=== PATIENT | female | born 1965 | race Caucasian/White ===

== ENCOUNTER 2022-09-05 17:42 | Inpatient (IN) | payer OTHER ==
[~2022-09-05] VITALS: Ht 157.5 cm; Wt 88.6 kg
[2022-09-05] MEDS ORDERED: LORazepam 2 MG/ML 1ML VIAL IV STA ×2 (17:58→22:28)
[2022-09-05 18:24] LABS: BASO % 0.4 % (0.0-1.0); EOS % 0.3 % (0.0-3.0); HEMATOCRIT 49.9 % (36.0-47.0); HEMOGLOBIN 17.1 g/dl (12.0-15.5); LYMPH # 1.7 10^3/uL (1.5-5.0); LYMPH % 18.4 % (24.0-44.0); MEAN CORPUSCULAR HEMOGLOBIN 30.6 pg (27.0-33.0); MEAN CORPUSCULAR HGB CONC 34.3 g/dl (32.0-36.5); MEAN CORPUSCULAR VOLUME 89.3 fl (80.0-96.0); MONO # 0.5 10^3/uL (0.0-0.8); NEUTROPHILS # 7.1 10^3/uL (1.5-8.5); NEUTROPHILS % 75.5 % (36.0-66.0); PLATELET COUNT, AUTOMATED 246 10^3/uL (150-450); RED BLOOD COUNT 5.59 10^6/uL (4.00-5.40); WHITE BLOOD COUNT 9.4 10^3/uL (4.0-10.0)
[2022-09-05] MEDS ORDERED: LABETALOL 100MG/20ML VIAL IV STA ×3 (18:26→21:42)
[2022-09-05 18:34] LABS: INR 0.92; PROTHROMBIN TIME 12.6 SECONDS (12.5-14.5)
[2022-09-05 18:35] LABS: PARTIAL THROMBOPLASTIN TIME 27.4 SECONDS (24.8-34.2)
[2022-09-05] MEDS ORDERED: HOME MED LIST COMPLETE! XX SCH (18:45)
[2022-09-05 18:54] LABS: BLOOD UREA NITROGEN 16 MG/DL (9-23); CALCIUM LEVEL 10.4 MG/DL (8.5-10.1); CARBON DIOXIDE LEVEL 24 MMOL/L (20-31); CHLORIDE LEVEL 102 MMOL/L (98-107); CREATININE FOR GFR 0.82 MG/DL (0.55-1.30); GLOMERULAR FILTRATION RATE > 60.0 (>51); GLUCOSE, FASTING 122 MG/DL (60-100); POTASSIUM SERUM 3.8 MMOL/L (3.5-5.1); SODIUM LEVEL 140 MMOL/L (136-145)
[2022-09-05 19:00] LABS: RSV AMPLIFICATION NEGATIVE (NEGATIVE)
[2022-09-05 20:24] LABS: HEMOGLOBIN A1c 5.4 % (4.0-6.0)
[2022-09-05 20:27] LABS: THYROID STIMULATING HORMONE 2.239 uIU/ML (0.55-4.78)
[2022-09-05 20:32] VITALS: BP 260/120
[2022-09-05] MEDS ORDERED: THIAMINE 100 MG TAB PO SCH (21:00)
[2022-09-05] MEDS ORDERED: ATORVASTATIN 20 MG TAB PO SCH (21:00)
[2022-09-05 21:15] LABS: ALBUMIN 4.1 G/DL (3.2-5.2)
[2022-09-05] MEDS ORDERED: ACETAMINOPHEN TAB 650MG DOSE (2X325MG) PO PRN (21:20)
[2022-09-05] MEDS ORDERED: LORazepam 2 MG TAB PO PRN (21:20)
[2022-09-05 21:56] LABS: CK-MB VALUE MASS < 1.0 NG/ML (<3.6)
[2022-09-05 21:58] LABS: CPK CREATINE PHOSPHOKINASE 59 U/L (34-145); MB/CK RELATIVE INDEX 1.69 (< OR =4)
[2022-09-05 21:59] LABS: PTH INTACT 172.5 PG/ML (18.5-88.0)
[2022-09-05] MEDS ORDERED: niCARdipine IV 40 MG in IV 1 EA IV SCH (22:15)
[2022-09-05] MEDS ORDERED: NS 1,000 ML IV ONE ×2 (23:55)
[2022-09-06] MEDS ORDERED: LORazepam 2 MG/ML 1ML VIAL IV STA (01:19)
[2022-09-06 01:26] VITALS: BP 205/98
[2022-09-06 01:45] VITALS: BP 196/9
[2022-09-06] MEDS ORDERED: FOLIC ACID 1MG TAB PO SCH (09:00)
[2022-09-06] MEDS ORDERED: ASPIRIN 81MG CHEW TABLET PO SCH (09:00)
[2022-09-06] MEDS ORDERED: MULTIVITAMINS/MINERALS THERAP 1 TAB PO SCH (09:00)
[2022-09-06] MEDS ORDERED: ENOXAPARIN 40MG/0.4ML SYRINGE (J1650 PER 10MG) SC SCH (09:00)
== END 2022-09-06 01:31 | disposition short-term general hospital (02) | DRG 45 ==
LOC: M ED 17:42 → EDBD 17:42 → M ED INP 21:19
PROVIDERS: ADMIT Internal Medicine; ATTEND Internal Medicine
DX: I63.511 Cerebral infarction due to unspecified occlusion or stenosis of right middle cerebral artery (principal); E83.52 Hypercalcemia; I10 Essential (primary) hypertension; F40.00 Agoraphobia, unspecified; R29.810 Facial weakness; R47.81 Slurred speech; R47.1 Dysarthria and anarthria; I16.0 Hypertensive urgency; F10.10 Alcohol abuse, uncomplicated; F41.9 Anxiety disorder, unspecified; Z87.891 Personal history of nicotine dependence

== ENCOUNTER → 2022-10-22 | Outpatient (REF) | payer OTHER | LOC: M LAB REF 16:06 | PROVIDERS: ATTEND Internal Medicine | DX: R79.82 Elevated C-reactive protein (CRP) (principal); D68.2 Hereditary deficiency of other clotting factors; D68.52 Prothrombin gene mutation ==

== ENCOUNTER → 2022-10-27 | Outpatient (REF) | payer OTHER | LOC: M LAB REF 16:39 | PROVIDERS: ATTEND Internal Medicine | DX: I69.320 Aphasia following cerebral infarction (principal) ==

== ENCOUNTER → 2022-11-18 | Outpatient (CLI) | payer OTHER | LOC: M RAD 07:14 | PROVIDERS: ATTEND Internal Medicine | DX: R74.01 Elevation of levels of liver transaminase levels (principal) ==

== ENCOUNTER → 2022-12-22 | Outpatient (REF) | payer OTHER | LOC: M LAB REF 17:11 | PROVIDERS: ATTEND Internal Medicine | DX: R79.9 Abnormal finding of blood chemistry, unspecified (principal) ==

== ENCOUNTER → 2023-04-02 | Outpatient (REF) | LOC: M PLALAB 10:16 | PROVIDERS: ATTEND Internal Medicine | DX: M25.561 Pain in right knee (principal) ==

== ENCOUNTER → 2024-05-31 | Outpatient (REF) | payer OTHER ==
[2024-05-31 13:42] LABS: HEMATOCRIT 41.1 % (36.0-47.0); HEMOGLOBIN 13.5 g/dl (12.0-15.5); MEAN CORPUSCULAR HEMOGLOBIN 29.1 pg (27.0-33.0); MEAN CORPUSCULAR HGB CONC 32.8 g/dl (32.0-36.5); MEAN CORPUSCULAR VOLUME 88.6 fl (80.0-96.0); PLATELET COUNT, AUTOMATED 266 10^3/uL (150-450); RED BLOOD COUNT 4.64 10^6/uL (4.00-5.40); WHITE BLOOD COUNT 8.2 10^3/uL (4.0-10.0)
[2024-05-31 13:59] LABS: HEMOGLOBIN A1c 5.5 % (4.0-6.0)
[2024-05-31 14:11] LABS: IRON (FE) 65 UG/DL (50-170)
[2024-05-31 14:12] LABS: ALKALINE PHOSPHATASE 179 U/L (35-104); ALT/SGPT 36 U/L (7.0-40); AST/SGOT 14 U/L (<34); BILIRUBIN,TOTAL 0.6 MG/DL (0.3-1.2); BLOOD UREA NITROGEN 21 MG/DL (9-23); CARBON DIOXIDE LEVEL 29 MMOL/L (20-31); CHLORIDE LEVEL 103 MMOL/L (98-107); CREATININE FOR GFR 0.84 MG/DL (0.55-1.30); GLOMERULAR FILTRATION RATE > 60.0 (>51); GLUCOSE, FASTING 135 MG/DL (60-100); PERCENT SATURATION 22.4 % (13.2-45.0); POTASSIUM SERUM 4.5 MMOL/L (3.5-5.1); SODIUM LEVEL 140 MMOL/L (136-145); TOTAL IRON BINDING CAPACITY 290 UG/DL (250-425); TOTAL PROTEIN 7.5 G/DL (5.7-8.2)
[2024-05-31 14:16] LABS: FERRITIN 145.5 NG/ML (7.3-270.7)
[2024-05-31 14:17] LABS: THYROID STIMULATING HORMONE 1.981 uIU/ML (0.55-4.78); TOTAL 25(OH) VITAMIN D 39.6 NG/ML (20.0-100.0); TOTAL T3 131.2 NG/DL (60.0-181.0)
[2024-05-31 14:19] LABS: FREE T4 1.23 NG/DL (0.89-1.76)
== END ==
LOC: M LAB REF 12:34
PROVIDERS: ATTEND Family Medicine
DX: E61.1 Iron deficiency (principal); D50.9 Iron deficiency anemia, unspecified; I48.91 Unspecified atrial fibrillation; E11.9 Type 2 diabetes mellitus without complications; E03.9 Hypothyroidism, unspecified; E20.9 Hypoparathyroidism, unspecified; G30.9 Alzheimer's disease, unspecified

== ENCOUNTER → 2024-09-19 | Outpatient (REF) | LOC: M PLAIMG 12:46 | PROVIDERS: ATTEND Internal Medicine | DX: R52 Pain, unspecified (principal) ==